=== PATIENT | female | born 1990 | race Caucasian/White ===

== ENCOUNTER 2016-09-27 16:19 | Emergency (ER) | payer MEDICAID, OTHER, SELFPAY ==
[~2016-09-27] VITALS: Ht 160 cm; Wt 56.7 kg
[~2016-09-27 16:19] MED LIST: EXTR500C4 PO; MOTR200T44 PO
[2016-09-27] MEDS ORDERED: IBUP200C PO (17:15)
[2016-09-27] MEDS ORDERED: TYLE500T78 PO (17:15)
[2016-09-27] MEDS ORDERED: PERCOCET 5MG/325MG TAB PO ONE (17:15)
[2016-09-27] MEDS ORDERED: PERC5TAB6 PO (17:43)
[2016-09-27] MEDS ORDERED: MOBI7.5T10 PO (17:43)
[2016-09-27] MEDS ORDERED: OXYCODONE/APAP 5MG/325MG(BULK FOR ED) 1 TABLET PO ONE (18:00)
[2016-09-27 18:05] VITALS: BP 125/64
--- NOTE | 2016-09-28 03:37 | REP ---
Clinical: Pain and swelling. Technique: AP, lateral, bilateral oblique and sunrise views of the right knee. Comparison: 07/10/2015. Findings: Mottled heterogeneous appearance to the patella and distal femur with cortical irregularity predominantly involving the femoral condyles. Prepatellar soft tissue swelling is suggested and small effusion cannot be excluded. No suprapatellar effusion identified. No acute fracture or dislocation. Impression: Mild heterogeneous appearance to the distal femur and patella require correlation. No acute fracture dislocation. If the patient remains symptomatic MRI may be warranted for further investigation. Signed by Tim Nelson MD 09/28/2016 03:29 A
--- NOTE | 2016-10-02 14:21 | ED PDOC ---
Post-Departure Follow-Up ncog faxed formal report of right knee film for fu Gemma Matias MD October 02, 2016 14:21
== END 2016-09-27 18:07 | disposition home or self-care (01) ==
LOC: M ED 16:59
DX: S83.91XA Sprain of unspecified site of right knee, initial encounter (principal); X50.1XXA Overexertion from prolonged static or awkward postures, initial encounter; Y92.9 Unspecified place or not applicable; Y93.9 Activity, unspecified; Y99.9 Unspecified external cause status; Z88.0 Allergy status to penicillin

== ENCOUNTER 2016-12-09 21:20 | Emergency (ER) | payer MEDICAID, OTHER ==
[~2016-12-09] VITALS: Ht 157.5 cm; Wt 52.3 kg
[2016-12-09 21:20] VITALS: BP 151/90
[~2016-12-09 21:20] MED LIST changes: +IBUP200C10 PO; +MOBI4TAB PO; +PERC5TAB12 PO; +TYLE500T78 PO
[2016-12-09] MEDS ORDERED: ALPR0.5T3 (21:39)
== END 2016-12-10 00:51 | disposition left against medical advice (07) ==
LOC: M ED 21:20
DX: R68.84 Jaw pain (principal); Z53.21 Procedure and treatment not carried out due to patient leaving prior to being seen by health care provider

== ENCOUNTER 2022-06-11 11:46 | Emergency (ER) | payer OTHER ==
[~2022-06-11] VITALS: Ht 157.5 cm; Wt 88.6 kg
[~2022-06-11 11:46] MED LIST changes: +ALPR0.5T3; -IBUP200C10 PO; +IBUP200C25 PO; +RALTEGRAVIR 400 MG TAB (ISENTRESS) PO SCH; +TRUVADA 200MG/300MG TABLET PO SCH
[2022-06-11 11:47] VITALS: BP 135/91
[2022-06-11] MEDS ORDERED: METH-1177 PO (12:19)
[2022-06-11] MEDS ORDERED: ACETAMINOPHEN 500 MG TAB PO ONE (16:35)
[2022-06-11 17:04] LABS: ALBUMIN 3.4 G/DL (3.2-5.2); ALKALINE PHOSPHATASE 95 U/L (46-116); ALT/SGPT 78 U/L (7.0-40); AST/SGOT 54 U/L (<34); BILIRUBIN,TOTAL 0.4 MG/DL (0.3-1.2); BLOOD UREA NITROGEN 14 MG/DL (9-23); CALCIUM LEVEL 9.3 MG/DL (8.5-10.1); CARBON DIOXIDE LEVEL 24 MMOL/L (20-31); CHLORIDE LEVEL 103 MMOL/L (98-107); CREATININE FOR GFR 0.51 MG/DL (0.55-1.30); GLOMERULAR FILTRATION RATE > 60.0 (>60); GLUCOSE, FASTING 117 MG/DL (60-100); POTASSIUM SERUM 4.1 MMOL/L (3.5-5.1); SODIUM LEVEL 138 MMOL/L (136-145); TOTAL PROTEIN 7.7 G/DL (5.7-8.2)
[2022-06-11 17:06] LABS: HEPATITIS B SURFACE ANTIBODY NEGATIVE (POSITIVE)
[2022-06-11 17:18] LABS: HEPATITIS B SURFACE ANTIGEN NEGATIVE (NEGATIVE)
[2022-06-11 17:27] LABS: HCG, SERUM QUALITATIVE NEGATIVE (NEGATIVE)
[2022-06-11 17:31] LABS: HIV 1&2 SCREEN CENTAUR NEGATIVE (NEGATIVE)
[2022-06-11 17:40] LABS: HEPATITIS C VIRUS ABY INDEX > 11.0 INDEX (<0.8)
[2022-06-11 17:55] LABS: COCAINE METABOLITE URINE NEGATIVE (NEGATIVE); OPIATES URINE NEGATIVE (NEGATIVE); PHENCYCLIDINE URINE NEGATIVE (NEGATIVE)
[2022-06-11 17:56] LABS: BARBITURATES URINE NEGATIVE (NEGATIVE); CANNABINOIDS URINE NEGATIVE (NEGATIVE)
[2022-06-11] MEDS ORDERED: EXPOSURE KIT-ADULT 7 DAY SUPPLY PO ONE (18:00)
[2022-06-11] MEDS ORDERED: ULIPRISTAL ACETATE 30MG TAB (ELLA) PO ONE (18:00)
[2022-06-11] MEDS ORDERED: BOOSTRIX/ADACEL VACCINE (DIPHTH/PERTUSS/ACELL/TETANUS) 0.5ML SYR IM.IMMUN ONE (18:00)
[2022-06-11] MEDS ORDERED: metroNIDAZOLE (FLAGYL) 500MG TABLET PO ONE (18:00)
[2022-06-11] MEDS ORDERED: HEPATITIS B VACCINE 20MCG/ML 1ML SYRINGE (ADULT DOSE) IM.IMMUN ONE (18:00)
[2022-06-11] MEDS ORDERED: AZITHROMYCIN 250MG TABLET PO ONE (18:00)
[2022-06-11 18:05] LABS: AMPHETAMINES LEVEL URINE POSITIVE (NEGATIVE); BENZODIAZEPINES URINE POSITIVE (NEGATIVE); METHADONE URINE POSITIVE (NEGATIVE)
[2022-06-11] MEDS: LIDOCAINE 1% SDV 5ML VIAL DILUENT ONE ×2 (18:08→18:37)
[2022-06-11] MEDS: cefTRIAXone 500MG VIAL IM ONE ×2 (18:08→18:37)
[2022-06-11] MEDS ORDERED: RALTEGRAVIR 400 MG TAB (ISENTRESS) PO ONE (18:10)
[2022-06-11] MEDS ORDERED: TRUVADA 200MG/300MG TABLET PO ONE (18:10)
[2022-06-11] MEDS ORDERED: EMTR1TAB16 PO (18:12)
[2022-06-11] MEDS ORDERED: RALT40TA PO (18:12)
[2022-06-11] MEDS ORDERED: GENTAMICIN 10 MG/ML 2ML VIAL*PRES.FREE IM STA (18:25)
[2022-06-11] MEDS ORDERED: GENTAMICIN SULF 80MG/2ML VIAL IM STA (18:42)
[2022-06-11] MEDS ORDERED: ONDANSETRON 4MG ORAL DISINTEGRATING TAB PO ONE (19:40)
== END 2022-06-11 20:30 | disposition home or self-care (01) ==
LOC: M ED 11:46
DX: T76.21XA Adult sexual abuse, suspected, initial encounter (principal); S80.02XA Contusion of left knee, initial encounter; B18.2 Chronic viral hepatitis C; F15.10 Other stimulant abuse, uncomplicated; F17.200 Nicotine dependence, unspecified, uncomplicated; Z88.1 Allergy status to other antibiotic agents; Z79.1 Long term (current) use of non-steroidal anti-inflammatories (NSAID); Z79.899 Other long term (current) drug therapy

== ENCOUNTER → 2023-07-12 | Outpatient (CLI) | payer OTHER ==
[~2023-07-12] MED LIST changes: +EMTR1TAB16 PO; +METH-1177 PO; +RALT40TA PO; -RALTEGRAVIR 400 MG TAB (ISENTRESS) PO SCH; -TRUVADA 200MG/300MG TABLET PO SCH
[2023-07-12 17:09] LABS: HEMATOCRIT 39.7 % (36.0-47.0); HEMOGLOBIN 13.4 g/dl (12.0-15.5); MEAN CORPUSCULAR HEMOGLOBIN 30.4 pg (27.0-33.0); MEAN CORPUSCULAR HGB CONC 33.8 g/dl (32.0-36.5); PLATELET COUNT, AUTOMATED 213 10^3/uL (150-450); RED BLOOD COUNT 4.41 10^6/uL (4.00-5.40); WHITE BLOOD COUNT 4.6 10^3/uL (4.0-10.0)
[2023-07-12 17:13] LABS: HCG, SERUM QUALITATIVE NEGATIVE (NEGATIVE)
[2023-07-12 17:15] LABS: ALBUMIN 3.1 G/DL (3.2-5.2); ALKALINE PHOSPHATASE 90 U/L (46-116); ALT/SGPT 79 U/L (7.0-40); AST/SGOT 50 U/L (<34); BILIRUBIN,TOTAL 0.2 MG/DL (0.3-1.2); BLOOD UREA NITROGEN 14 MG/DL (9-23); CALCIUM LEVEL 8.9 MG/DL (8.5-10.1); CARBON DIOXIDE LEVEL 32 MMOL/L (20-31); CHLORIDE LEVEL 107 MMOL/L (98-107); CREATININE FOR GFR 0.79 MG/DL (0.55-1.30); GLOMERULAR FILTRATION RATE > 60.0 (>60); GLUCOSE, FASTING 98 MG/DL (60-100); SODIUM LEVEL 141 MMOL/L (136-145); TOTAL PROTEIN 7.2 G/DL (5.7-8.2)
[2023-07-12 17:43] LABS: HIV 1&2 SCREEN NEGATIVE (NEGATIVE)
[2023-07-12 17:56] LABS: HEPATITIS C VIRUS ABY INDEX > 11.00 INDEX (<0.8)
[2023-07-12 19:28] LABS: GC DNA AMPLIFICATION NEGATIVE (NEGATIVE)
== END ==
LOC: M WUC 12:22
PROVIDERS: ATTEND Family Medicine
DX: F11.20 Opioid dependence, uncomplicated (principal)
CPT/HCPCS: 36415; 80053; 84703; 85027; 86780; 86803; 87340; 87389; 87522; 87810; 87850; G0480

== ENCOUNTER → 2023-07-13 | Outpatient (CLI) | payer OTHER | LOC: M WUC 09:57 | PROVIDERS: ATTEND Family Medicine | DX: F11.20 Opioid dependence, uncomplicated (principal) ==

== ENCOUNTER → 2024-07-07 | Outpatient (CLI) | payer OTHER ==
[2024-07-07 17:33] LABS: BASO % 0.3 % (0.0-1.0); EOS # 0.1 10^3/uL (0.0-0.5); EOS % 2.2 % (0.0-3.0); HEMATOCRIT 40.6 % (36.0-47.0); HEMOGLOBIN 13.7 g/dl (12.0-15.5); LYMPH # 2.1 10^3/uL (1.5-5.0); LYMPH % 33.7 % (24.0-44.0); MEAN CORPUSCULAR HEMOGLOBIN 30.2 pg (27.0-33.0); MEAN CORPUSCULAR HGB CONC 33.7 g/dl (32.0-36.5); MEAN CORPUSCULAR VOLUME 89.6 fl (80.0-96.0); MONO # 0.3 10^3/uL (0.0-0.8); MONO % 4.5 % (2.0-8.0); NEUTROPHILS # 3.7 10^3/uL (1.5-8.5); NEUTROPHILS % 58.8 % (36.0-66.0); PLATELET COUNT, AUTOMATED 287 10^3/uL (150-450); RED BLOOD COUNT 4.53 10^6/uL (4.00-5.40); WHITE BLOOD COUNT 6.3 10^3/uL (4.0-10.0)
[2024-07-07 17:57] LABS: ALKALINE PHOSPHATASE 81 U/L (35-104); ALT/SGPT 82 U/L (7.0-40); AST/SGOT 57 U/L (<34); BILIRUBIN,TOTAL 0.2 MG/DL (0.3-1.2); BLOOD UREA NITROGEN 12 MG/DL (9-23); CALCIUM LEVEL 8.9 MG/DL (8.5-10.1); CARBON DIOXIDE LEVEL 29 MMOL/L (20-31); CHLORIDE LEVEL 103 MMOL/L (98-107); GLOMERULAR FILTRATION RATE > 60.0 (>60); GLUCOSE, FASTING 105 MG/DL (60-100); POTASSIUM SERUM 3.9 MMOL/L (3.5-5.1); SODIUM LEVEL 141 MMOL/L (136-145); TOTAL PROTEIN 7.2 G/DL (5.7-8.2)
[2024-07-07 18:30] LABS: HIV 1&2 SCREEN NEGATIVE (NEGATIVE)
[2024-07-07 18:43] LABS: HEPATITIS C VIRUS ABY INDEX > 11.00 INDEX (<0.8)
[2024-07-07 19:04] LABS: GC DNA AMPLIFICATION NEGATIVE (NEGATIVE)
[2024-07-10 12:11] LABS: HCV RNA log10 6.21 Log IU/mL (NOT DETECTED)
== END ==
LOC: M WUC 13:51
PROVIDERS: ATTEND Family Medicine
DX: F11.20 Opioid dependence, uncomplicated (principal)

== ENCOUNTER → 2024-07-07 | Outpatient (CLI) | payer OTHER ==
[2024-07-07 17:57] LABS: CHOLESTEROL RISK RATIO 2.81 (<5); HDL CHOLESTEROL 55.4 MG/DL (>40); LDL CHOLESTEROL 51.4 MG/DL (<100); NON-HDL-C 100.6 MG/DL
[2024-07-07 17:59] LABS: THYROID STIMULATING HORMONE 3.053 uIU/ML (0.55-4.78); TOTAL 25(OH) VITAMIN D 15.3 NG/ML (20.0-100.0)
[2024-07-07 18:30] LABS: HEMOGLOBIN A1c 5.3 % (4.0-6.0)
== END ==
LOC: M WUC 13:48
PROVIDERS: ATTEND Registered Nurse Psychiatric/Mental Health
DX: E55.9 Vitamin D deficiency, unspecified (principal); Z79.899 Other long term (current) drug therapy

== ENCOUNTER → 2025-01-09 | Outpatient (CLI) | payer OTHER ==
[2025-01-09 15:15] LABS: ALT/SGPT 12 U/L (7.0-40); AST/SGOT 16 U/L (<34); CALCIUM LEVEL 9.0 MG/DL (8.5-10.1); CARBON DIOXIDE LEVEL 30 MMOL/L (20-31); CHLORIDE LEVEL 104 MMOL/L (98-107); CHOLESTEROL LEVEL 163 MG/DL (<200); CHOLESTEROL RISK RATIO 3.06 (<5); CREATININE FOR GFR 0.73 MG/DL (0.55-1.30); GLOMERULAR FILTRATION RATE > 90.0 (>60); LDL CHOLESTEROL 78.7 MG/DL (<100); NON-HDL-C 109.9 MG/DL; POTASSIUM SERUM 4.2 MMOL/L (3.5-5.1); SODIUM LEVEL 141 MMOL/L (136-145); TRIGLYCERIDES LEVEL 156 MG/DL (<150)
[2025-01-09 15:23] LABS: TOTAL 25(OH) VITAMIN D 27.1 NG/ML (20.0-100.0)
[2025-01-09 15:35] LABS: ESTIMATED AVERAGE GLUCOSE 108.0 MG/DL (60-110)
== END ==
LOC: M WUC 11:44
PROVIDERS: ATTEND Nurse Practitioner Family
DX: Z79.899 Other long term (current) drug therapy (principal); Z68.41 Body mass index [BMI] 40.0-44.9, adult

== ENCOUNTER → 2025-01-19 | Outpatient (REF) | payer OTHER | LOC: M LAB REF 15:14 | PROVIDERS: ATTEND Surgery | DX: L72.3 Sebaceous cyst (principal) ==